=== PATIENT | male | born 1995 | race Caucasian/White ===

== ENCOUNTER 2025-03-10 20:57 | Emergency (ER) | payer OTHER | END 2025-03-10 22:11 | disposition other institution (70) | LOC: JP.ED 20:57 | DX: S82.832A Other fracture of upper and lower end of left fibula, initial encounter for closed fracture (principal); V86.56XA Driver of dirt bike or motor/cross bike injured in nontraffic accident, initial encounter | CPT/HCPCS: 73610-26-LT; 73610-LT; 99283; 99284 ==